=== PATIENT | female | born 1980 | race Caucasian/White ===

== ENCOUNTER → 2018-03-03 12:13 | Outpatient (CLI) | payer OTHER, SELFPAY ==
--- NOTE | 2018-03-03 | DI.US.S_ITS ---
PROCEDURE: US PELVIC COMPLETE INDICATIONS: ABNORMAL UTERINE BLEEDING TECHNIQUE: Real-time scanning was performed of the pelvic organs, with image documentation. Additional endovaginal scanning was necessary due to incomplete visualization of the adnexal and endometrial structures by transabdominal scanning. COMPARISON: [facility], , PELVIC COMPLETE, 12/11/2011, 10:31. FINDINGS: Transabdominal scanning: Limited scanning through the kidneys shows no hydronephrosis. The kidneys measure 9.7 CM right and 11.5 CM left. No pathologic free abdominal or pelvic fluid. Endovaginal scanning: Uterus: Uterus is normal in size at 4.8 x 7.3 x 8.2 cm. The endometrium measures 7.1 mm in combined thickness. The right anterior subserosal fibroid has increased significantly in size, now measuring 4.0 x 4.0 x 4.3 cm compared to 1.4 x 1.4 x 1.6 cm on prior study. Ovaries: The right ovary now appears normal measuring 1.4 x 2.4 x 2.8 cm. The left ovary measures 1.1 x 2.1 x 2.6 cm. IMPRESSION: 1. Interval enlargement of subserosal fibroid in the right anterior uterine body, now measuring 4.3 cm in maximum diameter. 2. Normal ovaries. Dictated by: Robert Gonzalez M.D. on 03/03/2018 at 13:12 Approved by: Robert Gonzalez M.D. on 03/03/2018 at 13:20
== END ==
PROVIDERS: PCP Family Medicine; Visit Provider Nurse Practitioner Family
DX: D25.2 Subserosal leiomyoma of uterus (principal); N93.9 Abnormal uterine and vaginal bleeding, unspecified
CPT/HCPCS: 76830; 76856

== ENCOUNTER → 2020-02-23 14:38 | Outpatient (CLI) | payer OTHER, SELFPAY ==
--- NOTE | 2020-02-23 | DI.US.S_ITS ---
PROCEDURE: US PELVIC COMPLETE INDICATIONS: DUB, PAIN TECHNIQUE: Real-time scanning was performed of the pelvic organs, with image documentation. Additional endovaginal scanning was necessary due to incomplete visualization of the adnexal and endometrial structures by transabdominal scanning. COMPARISON: [facility], , US PELVIC COMPLETE, 03/03/2018, 12:19. FINDINGS: Transabdominal scanning: Limited scanning through the kidneys shows no hydronephrosis. No pathologic free abdominal or pelvic fluid. Endovaginal scanning: Uterus: Uterus is anteverted and normal in size at 8.6 x 5.4 x 4.7 cm. The endometrium measures 11.7 mm in combined thickness. Intramural fibroid measuring up to 6.0 cm. Ovaries: Ovaries not identified. IMPRESSION: 1. 6.0 cm intramural fibroid which has increased in size compared to prior examination dated 03/03/2018. 2. Ovaries not identified. Dictated by: Cal Neri [facility] Interpreted: Lissette Napier MD on 02/23/2020 at 16:02 Approved by: Lissette Napier M.D. on 02/23/2020 at 18:20
== END ==
PROVIDERS: PCP Family Medicine; Referring Provider Family Medicine; Visit Provider Family Medicine
DX: N93.8 Other specified abnormal uterine and vaginal bleeding (principal); D25.1 Intramural leiomyoma of uterus
CPT/HCPCS: 76830; 76856

== ENCOUNTER → 2021-05-22 07:14 | Outpatient (CLI) | payer OTHER, MEDICAID, SELFPAY ==
--- NOTE | 2021-05-22 | DI.US.S_ITS ---
PROCEDURE: US PELVIC COMPLETE INDICATIONS: SEVERE LEFT PELVIC PAIN TECHNIQUE: Real-time scanning was performed of the pelvic organs, with image documentation. Additional endovaginal scanning was necessary due to incomplete visualization of the adnexal and endometrial structures by transabdominal scanning. COMPARISON: [facility], , PELVIC COMPLETE, 03/03/2018, 12:19. [facility], , PELVIC COMPLETE, 02/23/2020, 14:56. FINDINGS: Uterus: Uterus is anteverted and normal in size at 9.0 x 4.8 x 8.9 cm. There is a large exophytic right anterior subserosal mass measuring 6.0 x 5.7 x 6.4 cm, increased compared to prior (6.0 x 4.7 x 5.4 cm). There is no displacement of the endometrium. The endometrium measures 13 mm in combined thickness. Ovaries: The left ovary is enlarged measuring 6.0 x 5.0 x 6.6 cm. There are two complex cystic structures within the ovary, one measuring 3.8 cm in the other measuring 4.3 cm. Both demonstrate solid, but a vascular components. There is trace paraovarian fluid. This is new since the prior study. The right ovary was not seen. Other: No pathologic free abdominal or pelvic fluid. IMPRESSION: 1. Complex left ovarian cysts. Differential diagnosis is most likely physiologic/hemorrhagic cysts, however early follow-up, 6-12 weeks, is recommended. 2. Enlargement of subserosal right uterine fibroid. 3. Nonvisualization of the right ovary. Dictated by: Lissette Napier M.D. on 05/22/2021 at 10:26 Approved by: Lissette Napier M.D. on 05/22/2021 at 10:33
== END ==
PROVIDERS: PCP Family Medicine; Referring Provider Internal Medicine; Visit Provider Internal Medicine
DX: R10.2 Pelvic and perineal pain (principal); N83.202 Unspecified ovarian cyst, left side; D25.2 Subserosal leiomyoma of uterus
CPT/HCPCS: 76830; 76856